=== PATIENT | female | born 1950 | race Caucasian/White ===

== ENCOUNTER 2018-08-22 18:17 | Emergency (ER) | payer MEDICARE ==
[~2018-08-22] VITALS: Ht 170.2 cm; Wt 68.0 kg
--- NOTE | 2018-08-22 19:20 | NUR ---
PT BIBSELF FOR FALLING DOWN STAIRS, PT STATES THAT, "SHE WAS TAKING A DOG DOWN STAIRS AND THE DOG PULLED HER DOWN AND SHE FELL." PT AXO4. RESPIRATIONS EVEN AND UNLABORED. PT HAS ABRASION ON NOSE, R WRIST DEFORMITY W/ BRUISING, AND R LEG PAIN. 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
[2018-08-22] MEDS ORDERED: ONDANSETRON HCL/PF 4 MG/2 ML VIAL IVP ONE (19:30)
[2018-08-22] MEDS ORDERED: HYDROMORPHONE INJ 2 MG/ML DISP.SYRIN IV ONE (19:30)
[2018-08-22] MEDS ORDERED: IV NS 0.9% 1,000 ML BAG IV ONE (19:30)
[2018-08-22] MEDS ORDERED: ONDANSETRON HCL/PF 4 MG/2 ML VIAL ONE (19:35)
[2018-08-22] MEDS ORDERED: HYDROMORPHONE 1 MG/1 ML DISP.SYRIN ONE (19:36)
--- NOTE | 2018-08-22 19:54 | NUR ---
PT TAKEN TO CT.
--- NOTE | 2018-08-22 20:16 | NUR ---
PT RETURNED FROM CT.
[2018-08-22] MEDS ORDERED: HYDROCODONE/APAP 10/325MG 1 EA TABLET PO ONE (22:00)
[2018-08-22] MEDS ORDERED: ONDANSETRON 4 MG TAB.RAPDIS SL ONE (22:00)
[2018-08-22] MEDS ORDERED: HYDROCODONE/APAP 10/325MG 1 EA TABLET ONE (22:02)
[2018-08-22] MEDS ORDERED: ONDANSETRON 4 MG TAB.RAPDIS ONE (22:02)
[2018-08-22 22:11] VITALS: BP 155/96
== END 2018-08-22 22:23 | disposition home or self-care (01) ==
LOC: ER 18:25
DX: S52.531A Colles' fracture of right radius, initial encounter for closed fracture (principal); S02.2XXA Fracture of nasal bones, initial encounter for closed fracture; S70.11XA Contusion of right thigh, initial encounter; R51 Headache; I10 Essential (primary) hypertension; F32.9 Major depressive disorder, single episode, unspecified; F41.9 Anxiety disorder, unspecified; Z60.2 Problems related to living alone; W18.39XA Other fall on same level, initial encounter; Y93.01 Activity, walking, marching and hiking; Y92.89 Other specified places as the place of occurrence of the external cause; Y99.8 Other external cause status
CPT/HCPCS: 29125; 70450; 70486; 73110; 73700; 96374; 96375; 99284; J1170; J2405; J7030; Q0162